=== PATIENT | male | born 1980 | race Caucasian/White ===

== ENCOUNTER 2020-07-26 19:08 | Emergency (ER) | payer OTHER, SELFPAY ==
--- NOTE | ~2020-07-26 | XR_ITS ---
LUMBAR SPINE INDICATION: Low back pain after lifting TECHNIQUE: 3 views lumbar spine COMPARISON: None FINDINGS: No fracture, subluxation or dislocation. No evidence for spondylolysis or spondylolisthesi s. Vertebral bodies and disk spaces are preserved. IMPRESSION: 1: No acute abnormality of the lumbar spine identified. Reviewed, dictated and finalized at location A.
[2020-07-26 19:11] VITALS: BP 132/86; PULSE 78; RESP 16; TEMP 36.1; O2SAT 98
[2020-07-26] MEDS: KETOROLAC (*BKC) 60 MG/2 ML VIAL 30 MG IM (20:10)
--- NOTE | 2020-07-26 20:14 | ED.BACK ---
HPI - Back Pain/Injury General Chief Complaint: Back Pain/Injury Stated Complaint: back pain Time Seen by Provider: 07/26/20 19:29 Source: patient Mode of arrival: ambulatory Limitations: no limitations History of Present Illness HPI Narrative: Patient presents with chief complaint of diffuse low back pain that began after he had to lift 27 40 pound boxes while at work. Patient denies radiation of the back pain but states it is worsening when he goes from sitting to standing position or walks. He denies pain directly to the spine but on both sides of his spine. He denies loss of bladder or bowel function or saddle paresthesias. Patient denies having back injury in the past. Patient reports full sensation and movement of lower extremities. Related Data Allergies Allergy/AdvReac Type Severity Reaction Status Date / Time latex Allergy Rash Verified 07/26/20 19:14 Sulfa (Sulfonamide Allergy Anaphylaxis Verified 07/26/20 19:14 Antibiotics) Review of Systems Review of Systems: Narrative: CONSTITUTIONAL: Denies fever, chills, or sweats. EYES: Denies visual changes, redness, or discharge. ENT: Denies rhinorrhea, congestion, sore throat, or otalgia. CARDIOVASCULAR: Denies chest pain, palpitations, or edema. RESPIRATORY: Denies cough or dyspnea. GASTROINTESTINAL: Denies abdominal pain, nausea, vomiting, or diarrhea. GENITOURINARY: Denies dysuria or hematuria. SKIN: Denies rash or itching. MUSCULOSKELETAL: Reports back pain, denies joint pain NEUROLOGIC: Denies headache, numbness, dizziness, or weakness. PSYCHIATRIC: Denies anxiety or depression. Exam Narrative: Exam Narrative: GENERAL: Well-appearing, well-nourished. HEAD: Normocephalic, atraumatic. EYES: PERRLA and EOMI. ENT: Nares clear, no rhinorrhea or epistaxis. Mucous membranes moist. Oropharynx without tonsillar hypertrophy exudate or other lesions. Bilateral TMs pearly lopes nonbulging NECK: Supple. No adenopathy or masses. No vertebral tenderness or loss of ROM. CHEST: Clear to auscultation. No respiratory distress. No wheezes rales or rhonchi HEART: Regular rate and rhythm. Normal peripheral pulses. BACK:No vertebral point tenderness. There is spasm and pain with palpation of the lumbar paraspinal muscles. Patient reports increasing pain with standing and walking. Patient has full sensation and range of motion to lower extremities. No saddle paresthesias. EXTREMITIES: No acute changes in ROM. No edema. SKIN: Warm, dry, no rash. NEURO: No focal deficits. Alert and oriented x3. PSYCH: Normal mood and affect. Course Vital Signs Vital signs: Vital Signs Temperature 97 F L 07/26/20 19:11 Pulse Rate 78 07/26/20 19:11 Respiratory Rate 16 07/26/20 19:11 Blood Pressure 132/86 07/26/20 19:11 Pulse Oximetry 98 07/26/20 19:11 Temperature 97 F L 07/26/20 19:11 Pulse Rate 78 07/26/20 19:11 Respiratory Rate 16 07/26/20 19:11 Blood Pressure 132/86 07/26/20 19:11 Pulse Oximetry 98 07/26/20 19:11 MDM - Back Pain/Injury MDM Narrative Medical decision making narrative: Discussed with patient the need to follow-up with primary care depression of medicine for further evaluation. Patient will be treated for lumbar strain. Patient instructed to avoid lifting or excessive walking or standing over the next week. Patient directed to return to emergency department if he has any emergent symptoms. Differential Diagnosis Differential diagnosis: Likely lumbar radiculopathy, sciatica, strain of lumbar region, renal colic, pyelonephritis, thoracic back pain, AAA and discitis Imaging Data Radiologist's impression: ITS Impressions Lumbar Spine X-Ray 07/26/20 20:14 IMPRESSION: 1: No acute abnormality of the lumbar spine identified. Discharge Plan Discharge Clinical Impression: Strain of lumbar region Qualifiers: Encounter type: initial encounter Qualified Code(s): S39.012A - Strain of muscle, fascia and tendon of lower b
== END 2020-07-26 20:48 | disposition home or self-care (01) ==
PROVIDERS: Emergency Provider Family Medicine
DX: S39.012A Strain of muscle, fascia and tendon of lower back, initial encounter (principal); X50.0XXA Overexertion from strenuous movement or load, initial encounter
CPT/HCPCS: 72100; 96372; 99283; J1885